=== PATIENT | female | born 1935 | race Caucasian/White ===

== ENCOUNTER → 2023-10-19 11:18 | Outpatient (REF) | payer MEDICARE, SELFPAY ==
[2023-10-19 12:33] LABS: % Basophils 0.6 % (0-2); % Immature Granulocytes 0.1 % (0-0.5); % Lymphocytes 35.2 % (20.5-51.1); % Monocytes 7.6 % (1.7-9.3); % Neutrophils 52.5 % (42.2-75.2); Absolute Basophils 0.1 10^3/uL (0-0.2); Absolute Eosinophils 0.3 10^3/uL (0-0.7); Absolute Lymphocytes 2.8 10^3/uL (1.2-3.4); Absolute Monocytes 0.6 10^3/uL (0.1-0.6); Absolute Neutrophils 4.2 10^3/uL (1.4-6.5); Hematocrit 42.8 % (37.0-47.0); Hemoglobin 14.2 g/dL (12.0-16.0); Mean Corp Hgb Conc. 33.2 g/dL (33.0-37.0); Mean Corpuscular Hgb 32.4 pg (27.0-31.0); Mean Corpuscular Volume 97.7 fL (81.0-99.0); Mean Platelet Volume 9.8 fL (7.4-10.4); Nucleated Red Blood Cells % 0 %; Platelet Count 397 10^3/uL (130-400); Red Blood Cell Count 4.38 10^6/uL (4.20-5.40); Red Cell Dist. Width 13.1 % (11.5-14.5); White Blood Cell Count 7.9 10^3/uL (4.8-10.8)
[2023-10-19 12:37] LABS: ALT (SGPT) 19 U/L (0-35); AST (SGOT) 30 U/L (14-36); Albumin 4.3 g/dl (3.5-5.0); Alkaline Phosphatase 112 U/L (38-126); Blood Urea Nitrogen 11 mg/dl (7-17); Calcium 9.7 mg/dl (8.4-10.2); Carbon Dioxide 24 mmol/L (22-30); Chloride 105 mmol/L (98-107); Glucose 96 mg/dl (70-99); HDL Cholesterol 107 mg/dl; LDL Cholesterol, Calculated 138 mg/dl; Potassium 4.2 mmol/L (3.5-5.1); Sodium 139 mmol/L (135-145); Total Bilirubin 0.6 mg/dl (0.2-1.3); Total Cholesterol 263 mg/dl (50-199); Triglyceride 91 mg/dl (10-149); Very Low Density Lipoprotein 18 mg/dl (0-30); eGFR > 60.00
[2023-10-19 12:38] LABS: C-Reactive Protein < 5.00 mg/L (0.0-10.00)
[2023-10-19 13:09] LABS: TSH 5.81 uIU/ml (0.47-4.68)
[2023-10-19 13:29] LABS: Erythrocyte Sed Rate 17 mm/hour (0-20)
== END ==
LOC: OLABWIL 11:18
PROVIDERS: ATTENDING PHYSICIAN Nurse Practitioner
DX: R60.0 Localized edema (principal); E03.9 Hypothyroidism, unspecified; F41.9 Anxiety disorder, unspecified; R01.1 Cardiac murmur, unspecified; G62.9 Polyneuropathy, unspecified
CPT/HCPCS: 36415; 80053; 80061; 84443; 85025; 85652; 86140